=== PATIENT | female | born 1995 | race Caucasian/White ===

== ENCOUNTER 2022-04-17 17:22 | Emergency (ER) | payer OTHER ==
[~2022-04-17] VITALS: Ht 162.6 cm; Wt 61.7 kg
--- NOTE | 2022-04-17 17:35 | NUR ---
BIBS C/O COUGH/BACK PAIN SINCE YESTERDAY, 18 WEEKS BY US.
--- NOTE | 2022-04-17 18:04 | NUR ---
SWAB FOR RAPID INFLUENZA AND COVID 19 SENT TO LAB
--- NOTE | 2022-04-17 19:00 | NUR ---
PATIENT FRANDY FIGUEROA MADE AWARE
[2022-04-17 19:10] VITALS: BP 102/63
== END 2022-04-17 19:10 | disposition left against medical advice (07) ==
LOC: ER 17:30
DX: Z53.21 Procedure and treatment not carried out due to patient leaving prior to being seen by health care provider (principal); Z20.822 Contact with and (suspected) exposure to COVID-19; M54.9 Dorsalgia, unspecified; Z3A.18 18 weeks gestation of pregnancy; R50.9 Fever, unspecified
CPT/HCPCS: 87426; 87804; C9803